=== PATIENT | female | born 1985 | race Two or more races ===

== ENCOUNTER 2017-04-22 17:32 | Day surgery (SDC) | payer MEDICAID ==
[~2017-04-22] VITALS: Ht 154.9 cm; Wt 90.7 kg
[2017-04-22 18:29] LABS: Basophils # (auto) 0.1 uL; Monocytes # (auto) 0.7 uL; Nucleated Red Blood Cells % 0.1 %; White Blood Cell 13.3 10^3/uL (4.4-10.8)
[2017-04-22 18:30] LABS: Basophils % (auto) 0.4 % (0.0-2.0); Eosinophils # (auto) 0.6 uL; Eosinophils % (auto) 4.9 % (0.0-7.0); Hematocrit 38.1 % (36.0-46.0); Hemoglobin 12.2 g/dL (12.2-16.2); Lymphocytes # (auto) 3.8 uL; Lymphocytes % (auto) 28.6 % (10.0-50.0); Mean Corpuscular Hemoglobin 25.1 pg (28.0-32.0); Mean Corpuscular Hgb Conc. 32.1 g/dL (32.0-36.0); Mean Corpuscular Volume 78.1 fL (80.0-100.0); Monocytes % (auto) 5.4 % (0.0-12.0); Neutrophils # (auto) 8.1 uL; Neutrophils % (auto) 60.7 % (37.0-80.0); Platelet Count (auto) 267 10^3/uL (140-450); Red Blood Cells 4.87 10^6/uL (4.0-5.20); Red Cell Distribution Width 15.9 % (11.8-14.3)
[2017-04-22 18:45] LABS: Albumin 3.4 g/dL (3.4-5.0); BUN/Creatinine Ratio 12.2; Calcium 8.4 mg/dL (8.5-10.1); Potassium 3.5 mmol/L (3.5-5.1)
[2017-04-22 18:48] LABS: Bilirubin, Total 0.2 mg/dL (0.2-1.0); Total Protein 7.6 g/dL (6.4-8.2)
[2017-04-22] MEDS ORDERED: SODIUM CHLORIDE 0.9% 1,000 ML IV ONE ×2 (19:00→21:00)
[2017-04-22] MEDS ORDERED: LACT. RINGERS/OXYTOCIN 20UNITS 1,000 ML IV SCH ×2 (21:10→21:15)
[2017-04-22] MEDS ORDERED: LACT. RINGERS/OXYTOCIN 20UNITS 1,000 ML IV ONE (21:33)
[2017-04-22] MEDS ORDERED: ceFAZolin 1GM/50ML 50 ML IV ONE (21:59)
[2017-04-22 22:07] LABS: INR 0.95 (0.9-1.15); Partial Thromboplastin Time 22.3 sec (22.64-33.71); Prothrombin Time 10.3 sec (9.37-12.3)
[2017-04-22] MEDS ORDERED: MIDAZOLAM HCL 1MG/1ML-2 ML VIAL ONE (22:07)
[2017-04-22] MEDS ORDERED: fentaNYL CITRATE 100 MCG/2 ML VL ONE (22:07)
[2017-04-22] MEDS ORDERED: PROPOFOL 10 MG/ML 20 ML IV ONE (22:08)
[2017-04-22] MEDS ORDERED: RHO (D) IMMUNE GLOBULIN 300 MCG INJ IM PRN (22:30)
[2017-04-22] MEDS ORDERED: ePHEDrine SULFATE 50 MG/ML AMP IV PRN (22:45)
[2017-04-22] MEDS ORDERED: ONDANSETRON HCL 4 MG/2 ML VIAL IV ONE (22:45)
[2017-04-22] MEDS ORDERED: hydrALAZINE HCL 20 MG/ML VL IV PRN (22:45)
[2017-04-22 23:15] VITALS: BP 111/67
[2017-04-23] MEDS ORDERED: fentaNYL CITRATE 100 MCG/2 ML VL IV ONE (06:00)
== END 2017-04-22 23:25 | disposition home or self-care (01) ==
LOC: EDBD 17:32 → ER 17:32 → GYNSUR 21:09 → ER 21:09 → GYNSUR 21:11 → SUR 23:25
PROVIDERS: ATTEND Obstetrics & Gynecology
DX: O03.1 Delayed or excessive hemorrhage following incomplete spontaneous abortion (principal); E66.9 Obesity, unspecified; Z68.37 Body mass index [BMI] 37.0-37.9, adult; D64.9 Anemia, unspecified
CPT/HCPCS: 59812; J3010; J7030; 36415; 76801; 76817; 80053; 84702; 85025; 85610; 85730; 86850; 86900; 86901; J0690; J2250; J2405; J2590; J2704

== ENCOUNTER 2021-07-28 19:22 | Emergency (ER) | payer MEDICAID ==
[~2021-07-28] VITALS: Ht 154.9 cm; Wt 89.4 kg
[2021-07-28 20:04] LABS: Basophils # (auto) 0.1 10 ^3/uL (0-0.2); Basophils % (auto) 0.8 % (0.0-2.0); Eosinophils # (auto) 0.2 10 ^3/uL (0-0.8); Eosinophils % (auto) 3.2 % (0.0-7.0); Hematocrit 36.9 % (36.0-46.0); Hemoglobin 12.3 g/dL (12.2-16.2); Lymphocytes # (auto) 2.1 10 ^3/uL (0.4-5.4); Lymphocytes % (auto) 33.2 % (10.0-50.0); Mean Corpuscular Hemoglobin 25.6 pg (28.0-32.0); Mean Corpuscular Hgb Conc. 33.3 g/dL (32.0-36.0); Mean Corpuscular Volume 76.8 fL (80.0-100.0); Monocytes # (auto) 0.4 10 ^3/uL (0-1.3); Monocytes % (auto) 6.3 % (0.0-12.0); Neutrophils # (auto) 3.6 10 ^3/uL (1.6-8.6); Neutrophils % (auto) 56.5 % (37.0-80.0); Nucleated Red Blood Cells % 0.1 %; White Blood Cell 6.3 10^3/uL (4.4-10.8)
[2021-07-28 20:19] LABS: Albumin 3.4 g/dL (3.4-5.0); Calcium 8.9 mg/dL (8.5-10.1)
[2021-07-28 20:23] LABS: BUN/Creatinine Ratio 13.5; Bilirubin, Total 0.2 mg/dL (0.2-1.0); Total Protein 7.4 g/dL (6.4-8.2)
[2021-07-28 21:17] LABS: Urine Bacteria NONE SEEN /hpf (None Seen); Urine Blood 3+ /uL (Negative); Urine WBC 187 /hpf (0 - 5); Urine WBC Clumps PRESENT /hpf (None Seen)
[2021-07-29 00:30] VITALS: BP 148/96
== END 2021-07-29 00:32 | disposition home or self-care (01) ==
LOC: ER 19:25
DX: N93.9 Abnormal uterine and vaginal bleeding, unspecified (principal); Z86.2 Personal history of diseases of the blood and blood-forming organs and certain disorders involving the immune mechanism
CPT/HCPCS: 36415; 76830; 76856; 80053; 81001; 84702; 85025; 86850; 86900; 86901